=== PATIENT | female | born 1950 | race Caucasian/White ===

== ENCOUNTER 2018-06-30 09:40 | Emergency (ER) | payer MEDICARE, BC ==
--- OUTSIDE RECORDS SUMMARY | 2018-06-30 11:11 | XMS REPORT ---
:1950 External Reference #:[id number] Author Organization [facility] Address [address] [place] [address] Phone [phone] Care Team Providers Name Role Phone Ashley Rucker MD Primary Care Physician Unavailable Payers Type Date Identification Numbers Payment Provider Subscriber Medicare Primary Effective: Policy Number: Medicare Catia Barnes 2017 [id number] PayID: [id number] [address] [place] [address] Medigap Part B Effective: 2017 Policy Number: [facility] Catia Barnes [id number] PayID: [id number] [address] [place] [address] Advance Directives Type Date Description Status Comment Other Directive 05/19/2018 Health Care Proxy Current and Verified Problems Date Description Provider Status Onset: 07/20/2017 Difficulty breathing Yulissa Rahman MD Active Onset: 08/10/2017 Obstructive sleep apnea syndrome Lianna Burnette DNP, RN, Active [facility] Onset: 01/23/2018 Body mass index 30+ - obesity Lianna Burnette DNP, RN, Active [facility] Onset: 05/19/2018 Essential hypertension Sampson Valenzuela NP Active Onset: 05/19/2018 History of squamous cell Sampson Valenzuela NP Active carcinoma in situ Note: Anus Onset: 06/05/2018 Sciatica Tayler Lopez M.D. 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 Onset: 08/10/2017 Hypersomnia Lianna Burnette DNP, RN, Resolved [facility] Resolved: 09/21/2017 Family History Date Family Member(s) Problem(s) Comments General Diabetes General Cancer General Hypertension Father Diabetes Mother Cancer Lung Mother Arthritis Mother Hypertension Mother Viral Hepatitis Siblings 4 4 half siblings on father's side Social History Type Date Description Comments Marital Status Single Lives With Male Partner Occupation Accounts Receivable Representative manger at [employer] Occupation 11/14/2017 Retired Cigarette Use Never Smoked Cigarettes ETOH Use Drinks 4 Alcoholic Beverages Per Week Smoking Patient has never smoked Recreational Drug Use Denies Drug Use Daily Caffeine Consumes on average 2 3-4 max per day cups of regular coffee per day Exercise Type/Frequency Exercises regularly Exercise Type/Frequency Walks daily Allergies, Adverse Reactions, Alerts Date Description Reaction Status Severity Comments 07/20/2017 Sulfa active Itchy Medications Medication Date Status Form Strength Qnty SIG Indications Ordering Provider Naproxen 05/19/ Active Tablets 500mg 30tabs 1 tablet M25.552 Sampson 2018 with food by EMILY Valenzuela mouth twice a day Baclofen 05/19/ Active Tablets 10mg 20tabs take 1/2 tab M25.552 Armstrong 2018 every 8 EMILY Valenzuela hours as needed for muscle spasm Metformin HCL 00/ Active Tablets 500mg 1 by mouth Unknown 0000 twice a day Telmisartan / Active Tablets 40mg 1 by mouth Unknown 0000 every day Multi Vitamin 00// Active Tablets 1 by mouth Unknown Daily 0000 every day Turmeric 0000/ Active Tablets bid Unknown [place] 0000 Potassium 00/ Active Tablets 550mg once a day Unknown 0000 Fish Oil 00/ Active Capsules 500mg 1 by mouth Unknown 0000 qd Sudafed 00/ Active Tablets 30mg 1 tabs every Unknown Congestion 0000 4-6 hours as needed for congestion Calcium 00/00/ Active Capsules qd Unknown /Magnesium 0000 /Zinc With D3 Vitamin E 00/00/ Active Capsules 400Unit qd Unknown 0000 Vitamin D3 0000/ Active Tablets 1000Unit 1 by mouth Unknown 0000 every day Flaxseed Oil 0000/ Active Capsules 1000mg 1 by mouth Unknown 0000 every day Vital Signs Date Vital Result Comment 06/05/2018 Height 68.5 inches 5'8.50" Weight 198.00 lb Heart Rate 63 /min BP Systolic 163 mmHg BP Diastolic 76 mmHg Body Temperature 97.4 F BMI (Body Mass Index) 29.7 kg/m2 05/19/2018 Height 68.25 inches 5'8.25" Weight 203.00 lb Heart Rate 58 /min BP Systolic Sitting 160 mmHg BP Diastolic Sitting 86 mmHg Body Temperature 97.8 F O2 % BldC Oximetry 96 % BMI (Body Mass Index) 30.6 kg/m2 01/23/2018 Height 68 inches 5'8" Weight 200.00 lb Heart Rate 64 /min BP Systolic Sitting 136 mmHg Lue large cuff BP Diastolic Sitting 74 mmHg Lue large cuff Respiratory Rate 14 /min O2 % BldC Oximetry 98 % On Ra BMI (Body Mass Index) 30.4 kg/m2 12/29/2017 Heart Rate 76 /min Respiratory Rate 16 /min Body Temperature 97.6 F 12/15/2017 Height 68.5 inches 5'8.50" Weight 200.00 lb Heart Rate 62 /min BP Systolic 160 mmHg BP Diastolic 90 mmHg Respiratory Rate 16 /min Body Temperature 97.4 F BMI (Body Mass Index) 30.0 kg/m2 09/21/2017 Height 68.5 inches 5'8.50" Weight 199.50 lb with shoes Heart Rate 62 /min BP Systolic Sitting 148 mmHg Lue reg cuff BP Diastolic Sitting 86 mmHg Lue reg cuff Respiratory Rate 16 /min O2 % BldC Oximetry 98 % On Ra BMI (Body Mass Index) 29.9 kg/m2 08/10/2017 Height 68.5 inches 5'8.50" Weight 200.00 lb With shoes Heart Rate 66 /min BP Systolic Sitting 146 mmHg Lue reg cuff BP Diastolic Sitting 78 mmHg Lue reg cuff Respiratory Rate 16 /min O2 % BldC Oximetry 98 % On Ra BMI (Body Mass Index) 30.0 kg/m2 07/20/2017 Height 68.5 inches 5'8.50" Weight 199.50 lb Heart Rate 84 /min BP Systolic Sitting 142 mmHg BP Diastolic Sitting 72 mmHg Respiratory Rate 14 /min O2 % BldC Oximetry 98 % BMI (Body Mass Index) 29.9 kg/m2 Neck Circumference in inches 15 Results Test Date Test Result H/L Range Note Laboratory test 12/15/2017 Surgical Pathology SEE RESULT BELOW 1, 2 finding 1 [id number] 2 SEE RESULT BELOW Name: CATIA BARNES : [address]: Cristhian Edwards MD Acct: [id number] Unit: [id number] AGE: 67 Location: [facility] Re12/15/17 SEX: F Status: REG REF SPEC: [id number] LAYLA: 12/15/17-[address]: Cristhian Edwards MD REQ: [id number] RECD: 12/15/17 STATUS: SOUT _ ORDERED: LEVEL 4 COMMENTS: [id number] FINAL DIAGNOSIS Skin, perianal, biopsy: -- Squamous cell carcinoma in situ. -- Lesional cells extend to bilateral specimen edges. CLINICAL HISTORY No history given GROSS DESCRIPTION The specimen is received in formalin labeled, Perianal Skin Lesion, and consists of a 0.9 x 0.5 by up to 0.3 cm white-pink rubbery skin fragment, which is inked, serially sectioned and entirely submitted in one cassette. Signed (signature on file) Maria Luz Mujica MD 1414 END OF REPORT * ML=Testing performed at Main Lab DEPARTMENT OF PATHOLOGY, [address] [place] [address] Azael Narayan M.D. Director [facility] # [id number] Procedures Date CPT Code Description Status 12/15/2017 13755 Biopsy Skin Lesion Single Completed 07/20/2017 14202 Sleep Study Unattended,HRT Rate,Oxygen Sat,Resp Completed Effort/Airflow Encounters Type Date Location Provider CPT E/M Dx Office Visit 05/19/2018 1:00p [facility] [place] [address] M25.552 [place] I10 E11.9 Office Visit 01/23/2018 8:15a [facility] Lianna Burnette, 18442 G47.33 [facility] BRIDGETT ZARATE, CHEMISTS-BC Z68.30 Office Visit 12/29/2017 2:00p [facility] [place] [address] D04.5 [facility] Office Visit 12/15/2017 1:30p [facility] [place] [address] D04.5 [facility] K64.8 Office Visit 09/21/2017 3:00p [facility] Sleep Lianna Burnette 52806 G47.33 [facility] BRIDGETT ZARATE, CHEMISTS-ADONIS Office Visit 08/10/2017 1:30p [facility] Sleep Lianna Burnette, 29807 G47.33 [facility] BRIDGETT ZARATE, NIKO-ADONIS G47.10 Z68.30 Office Visit 07/20/2017 8:00a [facility] [address] R06.83 [facility] R06.81 G47.10 G89.29 Plan of Care Future Appointment(s):08/28/2018 4:20 pm - Ashley Rucker M.D. at [facility] Internal Medicine - Omcdljqvs70/27/2019 9:15 am - Lianna Burnette DNP, RN, CHEMISTS -BC at [facility]06/05/2018 - Tayler Lopez M.D.M25.552 Pain in left hipFollow up:Follow up: As pofconI03.12 Unilateral primary osteoarthritis, left hipM54.32 Sciatica, left side
--- NOTE | 2018-06-30 11:23 | UC ---
Hip/Pelvis Pain - HPI Summary HPI Summary: ONSET YESTERDAY AFTERNOON OF LEFT LOWER BACK/HIP PAIN THAT RADIATES DOWN HER LEG. STARTED AFTER SHE DID SOME WORK IN THE YARD MOVING THINGS INTO HER SHED. PATIENT HAD A SIMILAR EPISODE ABOUT A MONTH AGO AND SAW HER PCP. LEFT HIP/ PELVIS X-RAYS AND SI JOINT X-RAYS OBTAINED 05/19/18 SHOWED OSTEOARTHRITIS BUT NO ACUTE PROCESS. SHE FOLLOWED UP WITH DR. RAMIREZ FROM ORTHOPEDICS AND WITH CONSERVATIVE MANAGEMENT HER SYMPTOMS IMPROVED. SHE REPORTS THIS CURRENT EPISODE FEELS MUCH WORSE. SHE DENIES ANY SADDLE ANESTHESIA. NO LOSS OF BOWEL OR BLADDER CONTROL. FEELS A LITTLE BIT BETTER WHEN SHE HUNCHES FORWARD. SYSTOLIC BLOOD PRESSURE ON ARRIVAL WAS OVER 200. PATIENT IS CLEARLY IN SEVERE DISCOMFORT. PRESCRIPTION STRENGTH NAPROXEN AND BACLOFEN NOT HELPFUL. - History Of Current Complaint Chief Complaint: UCBackPain Stated Complaint: HIP AND LEG PAIN Time Seen by Provider: 06/30/18 11:19 Hx Obtained From: Patient, Family/Color Checker - Onset/Duration: Gradual Onset, Lasting Days - 1 DAY Timing: Constant Severity Initially: Moderate Severity Currently: Severe Pain Intensity: 10 Pain Scale Used: 0-10 Numeric Location: Discrete At: - LEFT LOW BACK/HIP Character Of Pain: Sharp Aggravating Factor(s): Movement Alleviating Factor(s): Nothing Associated Signs And Symptoms: Positive: Other - PARESTHESIAS LEFT LEG - Allergies/Home Medications Allergies/Adverse Reactions: Allergies Allergy/AdvReac Type Severity Reaction Status Date / Time Sulfa (Sulfonamide Allergy Hives Verified 06/30/18 11:14 Antibiotics) Home Medications: Home Medications Telmisartan 40 mg PO DAILY 06/30/18 [History Confirmed 06/30/18] metFORMIN* [Glucophage 500 MG TAB *] 500 mg PO BID 06/30/18 [History Confirmed 06/30/18] PMH/Surg Hx/FS Hx/Imm Hx Endocrine History: Diabetes Cardiovascular History: Hypertension Other Cancer History: ANAL CANCER - Surgical History Surgical History: Yes Surgery Procedure, Year, and Place: anal ca surgery - Family History Known Family History: Positive: Hypertension - Social History Alcohol Use: Weekly Substance Use Type: None Smoking Status (MU): Never Smoked Tobacco Review of Systems Constitutional: Negative Skin: Negative Respiratory: Negative Cardiovascular: Negative Gastrointestinal: Negative Musculoskeletal: Arthralgia, Decreased ROM, Myalgia Neurological: Paresthesia All Other Systems Reviewed And Are Negative: Yes Physical Exam Triage Information Reviewed: Yes Appearance: Well-Nourished, Pain Distress - SEVERE Vital Signs: Initial Vital Signs Temp 98 F 06/30/18 11:09 Pulse 80 06/30/18 11:09 Resp 16 06/30/18 11:09 BP 00/00 06/30/18 11:09 Pulse Ox 98 06/30/18 11:09 Vital Signs Reviewed: Yes Eyes: Positive: Conjunctiva Clear ENT: Positive: Hearing grossly normal Neck: Positive: Supple Respiratory: Positive: No respiratory distress, No accessory muscle use Cardiovascular: Positive: Pulses Normal Musculoskeletal: Positive: No Edema, ROM Limited @ - BACK, LEFT HIP, Other: - TTP DIFFUSELY OVER LEFT HIP/LOW BACK Neurological: Positive: Alert, Other: - POS STRAIGHT LEG RAISE LEFT Skin: Negative: rashes Hip Injury Course/Dx - Differential Dx/Diagnosis Provider Diagnoses: 1. LUMBAR RADICULOPATHY. 2. HYPERTENSIVE CRISIS Discharge - Sign-Out/Discharge Documenting (check all that apply): Patient Departure All imaging exams completed and their final reports reviewed: No Studies - Discharge Plan Condition: Stable Disposition: TRANS HIGHER LVL OF CARE FAC Patient Education Materials: Lumbar Radiculopathy (ED), Hypertensive Crisis (ED ) Referrals: Ashley Rucker MD [Primary Care Provider] - Additional Instructions: GO DIRECTLY TO THE [facility] FROM HERE FOR FURTHER EVALUATION. YOU HAVE DECLINED TRANSFER TO THE ED BY AMBULANCE. BE ADVISED THAT BY NOT TRAVELING IN A MONITORED SETTING YOU COULD BE RISKING WORSENING OF YOUR CONDITION THAT COULD POSE A THREAT TO YOUR LIFE, HEALTH AND MEDICAL SAFETY. YOU RECEIVED HYDROCODONE/APAP 5/325 AND 4MG ZOFRAN PRIOR TO DEPARTURE. - Billing Disposition and Condition Condition: STABLE Disposition: Trans Higher Lvl of Care Fac
[2018-06-30 11:25] VITALS: BP 184/100
[2018-06-30] MEDS ORDERED: HYDROcodone/ACETAMIN 5-325 MG* 1 TAB PO ONE (11:49)
[2018-06-30] MEDS ORDERED: Ondansetron ODT TAB* 4 MG PO ONE (11:49)
== END 2018-06-30 12:00 | disposition short-term general hospital (02) ==
LOC: UCEAST 09:40
DX: M54.16 Radiculopathy, lumbar region (principal); I10 Essential (primary) hypertension; E11.9 Type 2 diabetes mellitus without complications
CPT/HCPCS: 99211; A9270-GY; G0463

== ENCOUNTER 2018-06-30 12:21 | Emergency (ER) | payer MEDICARE, BC ==
[2018-06-30] MEDS ORDERED: Ondansetron ODT TAB* 4 MG ONE (15:53)
[2018-06-30] MEDS ORDERED: Ondansetron ODT TAB* 4 MG SL ONE (15:55)
[2018-06-30] MEDS ORDERED: cloNIDine TAB* 0.1 MG PO ONE ×2 (15:57→18:09)
--- NOTE | 2018-06-30 16:04 | ED ---
Hypertension - HPI Summary HPI Summary: The pt is a 68 y/o female presenting to [facility] c/o acute on chronic hypertension worsened today. Dr Chaim Ramirez MD referred her to the ED. The pt notes lower back pain that radiates down her LLE , tingling in the LLE, WOODALL , insomnia , L calf tightness, and fatigue but denies abd pain. The L sided pain described as shooting is rated 7/10 in intensity. She was diagnosed with sciatica 1 month ago and has been taking naproxen and a muscle relaxant to relief. The sx are similar to those she had in April, except for the L- sided pain. - History of Current Complaint Chief Complaint: EDHypertension Stated Complaint: HYPERTENSION Time Seen by Provider: 06/30/18 15:53 Hx Obtained From: Patient Onset/Duration: Atraumatic, Still Present, Worse Since - Today Timing: Constant Associated Signs & Symptoms: Negative - Abd pain, Tingling, Other: - lower back pain that radiates down her LLE , WOODALL , insomnia , L calf tightness, and fatigue Related Hx: Similar Episode - In April 2018 - Allergies/Home Medications Allergies/Adverse Reactions: Allergies Allergy/AdvReac Type Severity Reaction Status Date / Time Sulfa (Sulfonamide Allergy Hives Verified 06/30/18 13:01 Antibiotics) PMH/Surg Hx/FS Hx/Imm Hx Previously Healthy: No Endocrine/Hematology History: Reports: Hx Diabetes - pills Cardiovascular History: Reports: Hx Hypertension - on meds Neurological History: Reports: Hx Migraine, Other Neuro Impairments/Disorders - Sciatica - Cancer History Cancer Type, Location and Year: anal - Surgical History Surgery Procedure, Year, and Place: anal ca surgery Infectious Disease History: No Infectious Disease History: Denies: Traveled Outside the [place] in Last 30 Days - Family History Known Family History: Positive: Hypertension - Social History Occupation: Retired Lives: With Family Alcohol Use: Weekly Substance Use Type: Reports: None Smoking Status (MU): Never Smoked Tobacco Review of Systems Constitutional: Other - Positive: insomnia Positive: Fatigue Cardiovascular: Other - Hypertension Negative: Abdominal Pain Positive: Other - Positive: lower back pain that radiates down her LLE, L calf tightness Neurological: Other - Positive: tingling in the LLE Positive: Headache All Other Systems Reviewed And Are Negative: Yes Physical Exam - Summary Physical Exam Summary: Appearance: Well appearing, no pain distress Skin: warm, dry, reflects adequate perfusion Head/face: normal Eyes: EOMI, DIOR ENT: normal Neck: supple, non-tender Respiratory: CTA, breath sounds present Cardiovascular: RRR, pulses symmetrical Abdomen: non-tender, soft Bowel: present Musculoskeletal:Tenderness to palpation of the L gluteal and calf area , strength/ROM intact Neuro: normal, sensory motor intact, A&Ox3 GCS: 0 Triage Information Reviewed: Yes Vital Signs On Initial Exam: Initial Vitals Temp Pulse Resp BP Pulse Ox 97.3 F 81 20 218/91 99 06/30/18 12:55 06/30/18 12:55 06/30/18 12:55 06/30/18 12:55 06/30/18 12:55 Vital Signs Reviewed: Yes Diagnostics - Vital Signs Vital Signs Temp Pulse Resp BP Pulse Ox 06/30/18 15:55 264/136 06/30/18 12:55 97.3 F 81 20 218/91 99 - Laboratory Result Diagrams: 06/30/18 16:50 06/30/18 16:50 Lab Statement: Any lab studies that have been ordered have been reviewed, and results considered in the medical decision making process. - Radiology Venous Doppler Study Radiology Interpretation Completed By: Radiologist - IMPRESSION: No sonographic evidence of deep vein thrombosis. The ED physician reviewed this radiology report. - CT Brain CT CT Interpretation Completed By: Radiologist - Brain CT IMPRESSION: NO EVIDENCE FOR ACUTE INTRACRANIAL ABNORMALITY. The ED physician reviewed this radiology report. - EKG 17:22 Cardiac Rate: NL - 78 bpm EKG Interpretation: Normal EKG, No acute changes Hypertension Course/Dx - Course Course Of Treatment: A 68 year-old F presents to the ED with a CC of acute on chronic hypertension worsened today. The pt notes lower back pain that radiates down her LLE , tingling in the LLE, WOODALL , insomnia , L calf tightness, and fatigue but denies abd pain. The L sided pain described as shooting is rated 7/ 10 in intensity. She was diagnosed with sciatica 1 month ago and has been taking naproxen and a muscle relaxant to relief. The sx are similar to those she had in April except for the L-sided pain. A physical exam revealed tenderness to palpation of the L gluteal and calf area. A venous Doppler is negative for DVT. A brain CT is negative for intracranial bleeding. An EKG reveals no acuter changes. In the ED course, pt was given Clonidine 0.2 mg PO, Hydralazine 5mg IV, morphine 4mg IV, and Ondansetron 4mg SL which improved the symptoms. Patient will be discharged with a final Dx of sciatica and HTN. The pt is agreeable with this plan. pt feels better at present so will dc home - Diagnoses Differential Diagnosis/HQI PQRI: Hypertension, Other - sciatica Provider Diagnoses: Sciatica, Hypertension Discharge - Sign-Out/Discharge Documenting (check all that apply): Patient Departure - DC - Discharge Plan Condition: Stable Disposition: HOME Prescriptions: Cyclobenzaprine TAB* [Flexeril 10 MG TAB*] 10 mg PO TID PRN #15 tab MDD 3 PRN Reason: Pain Ibuprofen TAB* [Motrin TAB* 600 MG] 600 mg PO Q8H PRN #20 tab MDD 3 PRN Reason: Pain traMADol TAB* [Ultram*] 50 mg PO TID #12 tab MDD 3 Patient Education Materials: Sciatica (ED), Chronic Hypertension (ED) Referrals: Ashley Rucker MD [Primary Care Provider] - 3 Days Additional Instructions: Follow up with PCP in 3 days. Return to ED for any new or worsening symptoms - Billing Disposition and Condition Condition: STABLE Disposition: Home - Attestation Statements Document Initiated by Maria Gibcorina: Yes Documenting Scribe: Gabriela Coronel Provider For Whom Michael is Documenting (Include Credential): Dr. Trever Malin MD Scribe Attestation: Gabriela Gaxiola , scribed for Dr. Trever Malin MD on 06/30/18 at 2001. Scribe Documentation Reviewed: Yes Provider Attestation: The documentation as recorded by the Gabriela winchester accurately reflects the service I personally performed and the decisions made by , Dr. Trever Malin MD
[2018-06-30] MEDS ORDERED: Ondansetron INJ* 2 MG/ML VIAL IV ONE (16:06)
[2018-06-30] MEDS ORDERED: hydrALAZINE IV* 20 MG/ML VIAL IV SLOW PU ONE (16:07)
[2018-06-30] MEDS: Morphine INJ* 2 MG/ML 1 ML SYRINGE (TWO MG - NEW SYRINGE VERSION) IV ONE ×2 (16:16→16:53)
--- NOTE | 2018-06-30 17:00 | RAD ---
HISTORY: Left lower extremity pain TECHNIQUE: Multiple transverse and longitudinal ultrasound images were obtained of the veins of the left lower extremity using grayscale, color Doppler, and spectral Doppler imaging with and without compression and with augmentation. FINDINGS: VEINS: The common femoral vein, deep femoral vein, femoral vein and popliteal vein are compressible throughout their course, with normal flow on color Doppler imaging and normal response to augmentation on spectral Doppler imaging. SOFT TISSUES: Grossly normal. No large popliteal fossa cyst was identified. IMPRESSION: No sonographic evidence of deep vein thrombosis.
[2018-06-30 17:01] LABS: ABS Basophils 0 10^3/ul (0-0.2); ABS Eosinophils 0 10^3/ul (0-0.6); ABS Lymphocytes 0.6 10^3/ul (1.0-4.8); ABS Monocytes 0.2 10^3/ul (0-0.8); ABS Neutrophils 7.4 10^3/ul (1.5-7.7); ABS Nucleated RBC 0 10^3/ul; Eosinophil % 0.1 % (0-6); Hematocrit 43 % (35-47); Hemoglobin 14.7 g/dl (12.0-16.0); Lymphocyte % 7.2 % (25-47); Mean Corpuscular HGB Conc 34 g/dl (31-36); Mean Corpuscular Hemoglobin 26 pg (27-31); Mean Corpuscular Volume 76 fL (80-97); Mean Platelet Volume 7.6 um3 (7.4-10.4); Nucleated Red Blood Cells % 0.1; Platelet Count 233 10^3/ul (150-450); Red Blood Count 5.66 10^6/ul (4.00-5.40); Red Cell Distribution Width 14 % (10.5-15); White Blood Count 8.3 10^3/ul (3.5-10.8)
[2018-06-30 17:09] LABS: INR 0.98 (0.77-1.02)
[2018-06-30 17:18] LABS: EGFR Non-African American 96.3 (>60)
--- NOTE | 2018-06-30 17:24 | RAD ---
INDICATION: Headache. COMPARISON: There are no relevant prior studies available for comparison. TECHNIQUE: Contiguous axial sections of the brain were obtained from the skull base to the vertex without contrast. FINDINGS: The ventricles, cisterns and sulci are within normal limits. No significant focal abnormality or mass effect is seen. There is no evidence for hemorrhage. No significant focal osseous abnormality is seen. The visualized portion of the paranasal sinuses and mastoid air cells appear clear. IMPRESSION: NO EVIDENCE FOR ACUTE INTRACRANIAL ABNORMALITY.
[2018-06-30 18:43] VITALS: BP 183/105
== END 2018-06-30 19:35 | disposition home or self-care (01) ==
LOC: ED 12:21
DX: M54.30 Sciatica, unspecified side (principal); I10 Essential (primary) hypertension; M54.5 Low back pain; M54.16 Radiculopathy, lumbar region; E11.9 Type 2 diabetes mellitus without complications
CPT/HCPCS: 36415; 70450; 80053; 84484; 85025; 85610; 85730; 93005; 96374; 99283; A9270-GY; J0360; J2270; J2405